=== PATIENT | female | born 1990 | race Caucasian/White ===

== ENCOUNTER 2024-08-03 12:33 | Inpatient (IN) | payer BC ==
[2024-08-03] MEDS ORDERED: Butorphanol 2 MG/ML SDV IVPUSH PRN (13:26)
[2024-08-03] MEDS ORDERED: Sodium Chloride 0.9% 2.5 ML Syringe FLUSH PRN (13:26)
[2024-08-03] MEDS ORDERED: Water For Irrigation,Sterile 1,000 ML Container IRR PRN (13:26)
[2024-08-03] MEDS ORDERED: Ondansetron 4 MG/2 ML SDV IVPUSH PRN (13:26)
[2024-08-03] MEDS ORDERED: Misoprostol 200 MCG Tab PO PRN (13:26)
[2024-08-03] MEDS ORDERED: Sodium Chloride 0.9% 20 ML SDV IV PRN (13:26)
[2024-08-03] MEDS ORDERED: Carboprost Tromethamine 250 MCG/1 mL Vial IM PRN (13:26)
[2024-08-03] MEDS ORDERED: Sodium Chloride 0.9% 10 ML Syringe FLUSH PRN (13:26)
[2024-08-03] MEDS ORDERED: Lidocaine 1% 50 ML MDV INJECT PRN (13:26)
[2024-08-03] MEDS ORDERED: Methylergonovine 0.2 MG/1 ML Amp IM PRN (13:26)
[2024-08-03] MEDS ORDERED: TRANEXAMIC ACID IV PRN (13:26)
[2024-08-03] MEDS ORDERED: Oxytocin/0.9 % Sodium Chloride 30 UNIT/500 ML BAG IV SCH (13:30)
[2024-08-03 14:25] LABS: HEMATOCRIT 35.1 % (37.0-47.0); HEMOGLOBIN 12.3 g/dL (12.0-16.0); MEAN CORPUSCULAR HEMOGLOBIN 30.1 pg (28.0-32.0); MEAN CORPUSCULAR VOLUME 85.8 fL (83.0-99.0); MEAN PLATELET VOLUME 10.1 fL (9.4-12.3); PLATELET COUNT,PLT 232 K/uL (150-400); RED BLOOD CELL COUNT 4.09 M/uL (4.10-5.30); WHITE BLOOD CELL COUNT,WBC 19.89 K/uL (3.9-11.3)
[2024-08-03] MEDS: Lactated Ringers 1,000 ML IV SCH (18:40)
[2024-08-03] MEDS ORDERED: Ropivacaine HCl/PF 400 MG in Premix Bag 1 BAG EPIDUR SCH (19:30)
[2024-08-03] MEDS ORDERED: ePHEDrine 50 MG/ML SDV IVPUSH PRN (19:30)
[2024-08-03] MEDS ORDERED: dexmedeTOMIDine HCl 200 MCG/2 ML SDV EPIDUR SCH (19:30)
[2024-08-04] MEDS ORDERED: fentaNYL 100 MCG/2 ML SDV ONE (05:15)
[2024-08-04] MEDS ORDERED: Morphine PF 10 MG/10 ML SDV ONE (05:15)
[2024-08-04] MEDS ORDERED: Midazolam 1 MG/ML 2 ML SDV ONE (05:16)
[2024-08-04] MEDS ORDERED: dexmedeTOMIDine HCl 200 MCG/2 ML SDV ONE (05:18)
[2024-08-04] MEDS ORDERED: Dexamethasone 4 MG/ML 5 ML MDV ONE (05:18)
[2024-08-04] MEDS ORDERED: Ropivacaine 0.5% 5 MG/ML 30 ML SDV ONE (05:18)
[2024-08-04] MEDS ORDERED: ceFAZolin 2 GM Vial ONE (05:20)
[2024-08-04] MEDS ORDERED: Propofol 200 MG/20 ML SDV ONE (05:22)
[2024-08-04] MEDS ORDERED: Phenylephrine 1% 10 MG/ML SDV ONE (05:24)
[2024-08-04] MEDS ORDERED: Azithromycin 500 MG Vial ONE (05:36)
[2024-08-04] MEDS ORDERED: Sodium Chloride 0.9% 10 ML Syringe FLUSH PRN (05:41)
[2024-08-04] MEDS ORDERED: Sodium Chloride 0.9% 20 ML SDV IV PRN (05:41)
[2024-08-04] MEDS ORDERED: Sodium Chloride 0.9% 2.5 ML Syringe FLUSH PRN (05:41)
[2024-08-04] MEDS ORDERED: Citric Acid/Sodium Citrate Solution 30 ML Cup PO ONE (05:41)
[2024-08-04] MEDS ORDERED: Oxytocin/0.9 % Sodium Chloride 30 UNIT/500 ML BAG IV SCH (05:45)
[2024-08-04] MEDS ORDERED: Lactated Ringers 1,000 ML IV SCH ×2 (05:45→07:15)
[2024-08-04] MEDS ORDERED: droPERidol 5 MG/2 ML SDV ONE (05:46)
[2024-08-04] MEDS ORDERED: Calcium Chloride 10% 1 GM/10 ML Syringe ONE (05:59)
[2024-08-04] MEDS ORDERED: Oxytocin 10 Units/1 ML SDV ONE (06:10)
[2024-08-04] MEDS ORDERED: ePHEDrine 50 MG/ML SDV ONE (06:23)
[2024-08-04] MEDS: Phenylephrine HCl In 0.9% NaCl 1 MG/10 ML Syringe IVPUSH PRN (06:54)
[2024-08-04] MEDS ORDERED: oxyCODONE 5 MG Tab PO PRN (07:10)
[2024-08-04] MEDS ORDERED: diphenhydrAMINE 50 MG/ML SDV IVPUSH PRN ×2 (07:10→07:27)
[2024-08-04] MEDS ORDERED: Methylergonovine 0.2 MG/1 ML Amp IM PRN (07:10)
[2024-08-04] MEDS ORDERED: Oxytocin 10 Units/1 ML SDV IM PRN (07:10)
[2024-08-04] MEDS ORDERED: Misoprostol 200 MCG Tab RECTAL PRN (07:10)
[2024-08-04] MEDS ORDERED: Lanolin 100% Cream 7 GM Tube TOP PRN (07:10)
[2024-08-04] MEDS ORDERED: Naloxone 0.4 MG/ML SDV IVPUSH PRN ×2 (07:10→07:27)
[2024-08-04] MEDS ORDERED: Bisacodyl 10 MG Supp RECTAL PRN (07:10)
[2024-08-04 07:19] LABS: PH,UMBILICAL ARTERIAL 7.138 (7.18-7.38); PH,UMBILICAL VENOUS 7.188 (7.25-7.45)
[2024-08-04] MEDS ORDERED: Ondansetron 4 MG/2 ML SDV IVPUSH PRN ×2 (07:27)
[2024-08-04] MEDS ORDERED: Phenylephrine HCl In 0.9% NaCl 1 MG/10 ML Syringe IVPUSH PRN (07:27)
[2024-08-04] MEDS ORDERED: Metoclopramide 10 MG/2 ML SDV IVPUSH PRN (07:27)
[2024-08-04] MEDS ORDERED: Nalbuphine 10 MG/1 ML Vial IVPUSH PRN (07:27)
[2024-08-04] MEDS ORDERED: Albuterol 0.083% 2.5 MG/3 ML Neb Soln NEB PRN (07:27)
[2024-08-04] MEDS ORDERED: HYDROmorphone 1 MG/ML Syringe IVPUSH PRN (07:27)
[2024-08-04] MEDS ORDERED: fentaNYL 50 MCG/ML SDV IVPUSH PRN (07:27)
[2024-08-04] MEDS ORDERED: Morphine 2 MG/ML SYRINGE IVPUSH PRN (07:27)
[2024-08-04] MEDS ORDERED: fentaNYL 100 MCG/2 ML SDV IVPUSH PRN (07:27)
[2024-08-04] MEDS: Ketorolac 30 MG/ML SDV IVPUSH SCH (07:55)
[2024-08-04] MEDS: Acetaminophen 1,000 MG in Premix Bag 1 BAG IV SCH (10:29)
[2024-08-04] MEDS: Docusate Sodium 100 MG Cap PO SCH (10:33)
[2024-08-04] MEDS: Ondansetron 4 MG/2 ML SDV IVPUSH PRN (13:38)
[2024-08-05 05:55] LABS: HEMATOCRIT 27.6 % (37.0-47.0); HEMOGLOBIN 9.2 g/dL (12.0-16.0)
[2024-08-05] MEDS: Acetaminophen/oxyCODONE 325-5 MG Tab PO PRN (16:06)
[2024-08-05] MEDS: Ibuprofen 800 MG Tab PO PRN (20:18)
== END 2024-08-06 14:00 | disposition home or self-care (01) | DRG 540 ==
LOC: MW.OB 12:33 → MW.OBCHECK 12:33 → OBSVTOIN 08-04 06:07 → MW.OB 08-04 06:07
PROVIDERS: ADMIT Obstetrics & Gynecology; ATTEND Obstetrics & Gynecology
PROC: 4A1HXCZ Monitoring of Products of Conception, Cardiac Rate, External Approach (ICD-10-PCS; 2024-08-04)
PROC: 10907ZC Drainage of Amniotic Fluid, Therapeutic from Products of Conception, Via Natural or Artificial Opening (ICD-10-PCS; 2024-08-04)
PROC: 0DNU0ZZ Release Omentum, Open Approach (ICD-10-PCS; 2024-08-04)
PROC: 10D00Z1 Extraction of Products of Conception, Low, Open Approach (ICD-10-PCS; principal; 2024-08-04 06:00)
DX: O48.0 Post-term pregnancy (principal); O66.41 Failed attempted vaginal birth after previous cesarean delivery; O34.211 Maternal care for low transverse scar from previous cesarean delivery; Z3A.40 40 weeks gestation of pregnancy; Z37.0 Single live birth; O99.892 Other specified diseases and conditions complicating childbirth; N73.6 Female pelvic peritoneal adhesions (postinfective); O62.1 Secondary uterine inertia
CPT/HCPCS: 01968; 36415; 64999; 82803; 85014; 85018; 85027; 86592; 86850; 86900; 86901; A9270-GY; J0131; J0456; J0690; J1100; J1790; J1885; J2250; J2274; J2371; J2405; J2590; J2704; J2795; J3010; J3490; J7120